=== PATIENT | male | born 2000 ===

== ENCOUNTER 2018-07-24 09:44 | Emergency (ER) | payer OTHER ==
[2018-07-24 10:01] VITALS: BMI 29.5
[2018-07-24 10:04] VITALS: BP 140/75; PULSE 68; RESP 16; TEMP 97.7; O2SAT 97
--- NOTE | 2018-07-24 10:29 | ED PDOC ---
Arrival/HPI - General Chief Complaint: Eye Problem Time Seen by Provider: 07/24/18 10:05 Historian: Patient - History of Present Illness Narrative History of Present Illness (Text): 07/24/18 11:12 17 y/o male with no significant PMH presents to the ED c/o right eye redness x 1 day. Patient had acute onset of eye redness and irritation yesterday morning with associated yellow discharge and increased tearing. Pt states his right eye was crusted over when he woke up yesterday and this morning. Pt reports having a URI over the last few days. Pt does not wear contacts or glasses. Has established ophthalmology followup. Denies fever, chills, trauma/injury, headache, FB sensation, eye pain, vision changes, sore throat, ear pain, abdominal pain, N/V, rash. Past Medical History - Provider Review Nursing Documentation Reviewed: Yes - Infectious Disease Hx of Infectious Diseases: None - Psychiatric Hx Substance Use: No Family/Social History - Physician Review Nursing Documentation Reviewed: Yes Family/Social History: No Known Family HX Smoking Status: Never Smoked Hx Alcohol Use: No Hx Substance Use: No Allergies/Home Meds Allergies/Adverse Reactions: Allergies No Known Allergies Allergy (Verified 07/24/18 10:01) Review of Systems - Physician Review All systems were reviewed & negative as marked: Yes - Review of Systems Constitutional: Normal. absent: Fevers Eyes: Normal, Other (right eye redness, irritation, drainage). absent: Vision Changes, Photophobia, Eye Pain ENT: Normal Respiratory: Normal. absent: SOB, Cough Cardiovascular: Normal. absent: Chest Pain, Palpitations Gastrointestinal: Normal. absent: Abdominal Pain, Nausea, Vomiting Genitourinary Male: Normal. absent: Dysuria, Frequency Musculoskeletal: Normal. absent: Back Pain Skin: Normal. absent: Rash Neurological: Normal. absent: Headache, Dizziness Endocrine: Normal Hemo/Lymphatic: Normal Psychiatric: Normal Physical Exam Vital Signs Reviewed: Yes Vital Signs Temp Pulse Resp BP Pulse Ox 07/24/18 10:03 97.7 F 68 16 140/75 97 Temperature: Afebrile Blood Pressure: Normal Pulse: Regular Respiratory Rate: Normal Appearance: Positive for: Well-Appearing, Non-Toxic, Comfortable Pain Distress: None Mental Status: Positive for: Alert and Oriented X 3 - Systems Exam Head: Present: Atraumatic, Normocephalic. No: Tenderness, Swelling Pupils: Present: PERRL Extroacular Muscles: Present: EOMI, Other (Right eye red, with increased tearing. Small amount of yellow mucus noted to nasal aspect. Eyelashes wet. No proptosis. No periorbital swelling. Left eye normal.). No: Gaze Palsy, Entrapment Conjunctiva: Present: Injected (right) Ears: Present: Normal, NORMAL TM Mouth: Present: Moist Mucous Membranes Pharnyx: Present: Normal. No: ERYTHEMA, EXUDATE, TONSILS ENLARGED Nose (External): Present: Atraumatic Nose (Internal): Present: Normal Inspection Neck: Present: Normal Range of Motion Respiratory/Chest: Present: Clear to Auscultation, Good Air Exchange. No: Respiratory Distress, Accessory Muscle Use Cardiovascular: Present: Regular Rate and Rhythm, Normal S1, S2. No: Murmurs Abdomen: No: Tenderness, Distention, Peritoneal Signs Back: Present: Normal Inspection Upper Extremity: Present: Normal Inspection. No: Cyanosis, Edema Lower Extremity: Present: Normal Inspection. No: Edema Neurological: Present: GCS=15, CN II-XII Intact, Speech Normal Skin: Present: Warm, Dry, Normal Color. No: Rashes Psychiatric: Present: Alert, Oriented x 3, Normal Insight, Normal Concentration Medical Decision Making ED Course and Treatment: Initial Plan: * Visual acuity * Reassess and Disposition Plan of care discussed with patient, and strict instructions given regarding prescriptions, importance of follow up, and signs to return to Emergency Department, to include vision changes, eye pain, fever, chills, headache, or any other new/worsening symptoms. Patient verbalizes understanding of discussion. Patient A&Ox3, ambulating with steady gait, stable for discharge home. Disposition/Present on Arrival - Present on Arrival Any Indicators Present on Arrival: No History of DVT/PE: No History of Uncontrolled Diabetes: No Urinary Catheter: No History of Decub. Ulcer: No History Surgical Site Infection Following: None - Disposition Have Diagnosis and Disposition been Completed?: Yes Diagnosis: Conjunctivitis Disposition: HOME/ ROUTINE Disposition Time: 10:45 Patient Plan: Discharge Condition: GOOD Discharge Instructions (ExitCare): Conjunctivitis ([place]) Additional Instructions: Use eye drops 1 drop in right eye every 3 hours while awake for 7 days Followup with eye doctor within 2 days Followup with primary doctor within 2 days Return to ER for any new/worsening symptoms Prescriptions: Polymyxin B Sulf/Trimethoprim [Polymyxin B-Tmp Eye Drops] 10 ml OD Q3H 7 Days #1 bottle Referrals: Angelito Oneill MD [Staff Provider] - Follow up with primary Forms: [facility] ([place]), WORK NOTE
== END 2018-07-24 10:49 | disposition home or self-care (01) ==
LOC: ED 09:44
DX: H10.9 Unspecified conjunctivitis (principal)